=== PATIENT | female | born 1935 | race Caucasian/White ===

== ENCOUNTER 2018-02-07 09:34 | Inpatient (IN) ==
[2018-02-07] MEDS ORDERED: HYDROmorphone 2 MG/1 ML VIAL IV STA (10:01)
[2018-02-07] MEDS ORDERED: ONDANSETRON 4 MG/2 ML VIAL IV STA (10:01)
[2018-02-07] MEDS ORDERED: SODIUM CHLORIDE 0.9% 500 ML IV STA (10:01)
[2018-02-07] MEDS ORDERED: ONDANSETRON 4 MG/2 ML VIAL ONE ×2 (10:04→17:17)
[2018-02-07] MEDS ORDERED: HYDROmorphone 2 MG/1 ML VIAL ONE ×2 (10:04→10:52)
[2018-02-07 10:08] LABS: Basophils # 0.1 10*3/uL (0.0-0.2); Basophils % 0.4 % (0.0-0.8); Eosinophils % 0.1 % (0.00-10.9); Hematocrit 40.1 VOL% (35.7-47.0); Immature Granulocytes % 0.6 %; Immature Granulocytes Absolute 0.09 #; Lymphocytes # 0.9 10*3/uL (1.4-4.0); Lymphocytes % 6.1 % (21.3-54.2); Mean Corpuscular HGB Conc 34.9 GM/DL (32-36); Mean Corpuscular Hemoglobin 36 PG (27-34); Mean Corpuscular Volume 101.8 FL (87-102); Mean Platelet Volume 10.9 FL (9.6-12.0); Monocytes # 0.9 10*3/uL (0.11-0.8); Monocytes % 6.3 % (1.7-12.7); Neutrophils # 12.3 10*3/uL (1.4-7.4); Neutrophils % 86.5 % (38.7-73.9); Platelet Count 203 T/CUMM (130-400); Red Blood Count 3.94 MC/CUMM (3.8-5.5); Red Cell Distribution Width 11.7 % (9.3-17.3); White Blood Count 14.2 T/CUMM (4-12)
[2018-02-07 10:14] LABS: INR 0.9
[2018-02-07 10:26] LABS: Albumin 3.9 G/DL (3.4-5.0); Bilirubin,Total 1.3 MG/DL (0.2-1.0); Calcium 9.2 MG/DL (8.5-10.1); Osmolality,Calculated 262.8 MOS/KG (273-304); Potassium 4.9 MMOL/L (3.5-5.1); Total Protein 8.1 G/DL (6.4-8.3)
[2018-02-07] MEDS ORDERED: HYDROmorphone 2 MG/1 ML VIAL IV ONE (10:51)
[2018-02-07] MEDS ORDERED: MAGNESIUM HYDROXIDE SUSP 30 ML UDCUP PO PRN ×2 (11:58→15:46)
[2018-02-07] MEDS ORDERED: HYDROmorphone 2 MG/1 ML VIAL IV PRN (11:58)
[2018-02-07] MEDS ORDERED: ceFAZolin 1,000 MG in SYRINGE 1 EACH IV ONE (11:58)
[2018-02-07] MEDS: SODIUM CHLORIDE 0.9% 1,000 ML IV SCH ×2 (12:25→21:30)
[2018-02-07] MEDS ORDERED: NITROGLYCERIN SL 0.4 MG TABLET SL PRN (14:01)
[2018-02-07] MEDS ORDERED: ROPIVACAINE 0.5% 30 ML VIAL ONE (14:29)
[2018-02-07] MEDS ORDERED: LACTULOSE 20 GM/30 ML UDCUP PO PRN (15:46)
[2018-02-07] MEDS ORDERED: BISACODYL 10 MG SUPP RECTAL PRN (15:46)
[2018-02-07] MEDS ORDERED: ONDANSETRON 4 MG/2 ML VIAL IV PRN (15:46)
[2018-02-07] MEDS ORDERED: ACETAMINOPHEN 325 MG TABLET PO PRN (15:46)
[2018-02-07] MEDS ORDERED: PROMETHAZINE 25 MG/1 ML VIAL IM PRN (15:46)
[2018-02-07] MEDS: SPIRONOLACTONE 25 MG TABLET PO SCH ×2 (16:01→21:01)
[2018-02-07 16:37] LABS: Apearance,Urine Slightly Hazy (Clear); Bacteria,Urine Occasional /HPF (Few); Bilirubin,Urine Negative (Negative); Blood, Urine Small mg/dL (Negative); Glucose,Urine (UA) Negative (Negative); Ketones,Urine 5 mg/dL (Negative); Mucus,Urine Occasional /LPF (Occasional); Nitrite,Urine Positive (Negative); Protein,Urine Negative; RBC,Urine <1 /HPF (0-4); Urine Color Yellow (Yellow); Urine Specific Gravity 1.013 (1.001-1.035); Urine Urobilinogen < 2.0 EU/DL (0.2-1.0); WBC,Urine 2 /HPF (0-6)
[2018-02-07] MEDS ORDERED: fentaNYL 100 MCG/2 ML VIAL ONE (17:17)
[2018-02-07] MEDS ORDERED: PROPOFOL 200 MG/20 ML VIAL IV ONE (17:17)
[2018-02-07] MEDS ORDERED: SEVOFLURANE 1 UNIT/15 MINUTE INH ONE (17:17)
[2018-02-07] MEDS ORDERED: ACETAMINOPHEN 1,000 MG/100 ML VIAL IV ONE (17:18)
[2018-02-07] MEDS ORDERED: PHENYLEPHRINE 10 MG/1 ML VIAL IV ONE (17:19)
[2018-02-07] MEDS: MAGNESIUM OXIDE 400 MG TABLET PO SCH (21:00)
[2018-02-07] MEDS ORDERED: ROSUVASTATIN 10 MG TABLET PO SCH (21:00)
[2018-02-07] MEDS: CARVEDILOL 3.125 MG TABLET PO SCH (21:02)
[2018-02-08] MEDS: HYDROmorphone 2 MG/1 ML VIAL IV PRN ×4 (00:07→15:53)
[2018-02-08] MEDS: ceFAZolin 1,000 MG in SYRINGE 1 EACH IV SCH ×3 (00:25→17:28)
[2018-02-08 06:04] LABS: Basophils % 0.6 % (0.0-0.8); Eosinophils # 0.1 10*3/uL (0.0-0.87); Eosinophils % 0.7 % (0.00-10.9); Hematocrit 29.7 VOL% (35.7-47.0); Hemoglobin 10.1 GM/DL (12.0-16.0); Immature Granulocytes % 0.3 %; Immature Granulocytes Absolute 0.02 #; Lymphocytes # 1.4 10*3/uL (1.4-4.0); Mean Corpuscular Hemoglobin 35 PG (27-34); Mean Corpuscular Volume 104.2 FL (87-102); Mean Platelet Volume 10.9 FL (9.6-12.0); Monocytes % 13.9 % (1.7-12.7); Neutrophils # 4.7 10*3/uL (1.4-7.4); Neutrophils % 65.5 % (38.7-73.9); Platelet Count 133 T/CUMM (130-400); Red Blood Count 2.85 MC/CUMM (3.8-5.5); Red Cell Distribution Width 12.1 % (9.3-17.3); White Blood Count 7.1 T/CUMM (4-12)
[2018-02-08 06:30] LABS: Calcium 8.1 MG/DL (8.5-10.1); Potassium 4.4 MMOL/L (3.5-5.1)
[2018-02-08 06:32] LABS: Albumin 2.7 G/DL (3.4-5.0); Bilirubin,Direct 0.4 MG/DL (0.0-0.20); Bilirubin,Total 1.4 MG/DL (0.2-1.0); Total Protein 5.5 G/DL (6.4-8.3)
[2018-02-08 06:33] LABS: Risk Ratio 1.85
[2018-02-08] MEDS: THYROID 60 MG TABLET PO SCH (07:59)
[2018-02-08] MEDS: SPIRONOLACTONE 25 MG TABLET PO SCH ×3 (08:00→20:55)
[2018-02-08] MEDS: MAGNESIUM OXIDE 400 MG TABLET PO SCH ×2 (08:00→20:53)
[2018-02-08] MEDS: PANTOPRAZOLE 40 MG TABLET PO SCH (08:00)
[2018-02-08] MEDS: SELENIUM 200 MCG TABLET PO SCH (08:00)
[2018-02-08] MEDS: CHOLECALCIFEROL 400 UNIT TABLET PO SCH (08:00)
[2018-02-08] MEDS: THIAMINE 100 MG TABLET PO SCH (08:01)
[2018-02-08] MEDS: ASPIRIN EC 81 MG TABLET PO SCH (08:01)
[2018-02-08] MEDS: CARVEDILOL 3.125 MG TABLET PO SCH ×2 (08:01→20:55)
[2018-02-08] MEDS: FOLIC ACID 1 MG TABLET PO SCH (08:01)
[2018-02-08] MEDS ORDERED: HYDROmorphone 2 MG/1 ML VIAL IV PRN (09:48)
[2018-02-08] MEDS ORDERED: TEMAZEPAM 15 MG CAPSULE PO PRN (10:39)
[2018-02-08] MEDS ORDERED: TEMAZEPAM 7.5 MG CAPSULE PO PRN (10:39)
[2018-02-08] MEDS: SODIUM CHLORIDE 0.9% 1,000 ML IV SCH (21:47)
[2018-02-09 05:28] LABS: Basophils % 0.5 % (0.0-0.8); Eosinophils # 0.1 10*3/uL (0.0-0.87); Eosinophils % 0.8 % (0.00-10.9); Hematocrit 28.9 VOL% (35.7-47.0); Hemoglobin 10.1 GM/DL (12.0-16.0); Immature Granulocytes % 0.5 %; Immature Granulocytes Absolute 0.03 #; Lymphocytes # 1.3 10*3/uL (1.4-4.0); Lymphocytes % 20.2 % (21.3-54.2); Mean Corpuscular HGB Conc 34.9 GM/DL (32-36); Mean Corpuscular Hemoglobin 36 PG (27-34); Mean Corpuscular Volume 101.8 FL (87-102); Mean Platelet Volume 10.9 FL (9.6-12.0); Monocytes # 0.9 10*3/uL (0.11-0.8); Monocytes % 13.1 % (1.7-12.7); Neutrophils # 4.3 10*3/uL (1.4-7.4); Neutrophils % 64.9 % (38.7-73.9); Platelet Count 120 T/CUMM (130-400); Red Blood Count 2.84 MC/CUMM (3.8-5.5); Red Cell Distribution Width 11.9 % (9.3-17.3); White Blood Count 6.6 T/CUMM (4-12)
[2018-02-09 06:03] LABS: Calcium 7.8 MG/DL (8.5-10.1); Osmolality,Calculated 271.8 MOS/KG (273-304); Potassium 4.1 MMOL/L (3.5-5.1)
[2018-02-09] MEDS: SODIUM CHLORIDE 0.9% 1,000 ML IV SCH (06:29)
[2018-02-09] MEDS: PANTOPRAZOLE 40 MG TABLET PO SCH (08:41)
[2018-02-09] MEDS: CHOLECALCIFEROL 400 UNIT TABLET PO SCH (08:41)
[2018-02-09] MEDS: MAGNESIUM OXIDE 400 MG TABLET PO SCH ×2 (08:41→21:21)
[2018-02-09] MEDS: SPIRONOLACTONE 25 MG TABLET PO SCH ×3 (08:41→21:22)
[2018-02-09] MEDS: THIAMINE 100 MG TABLET PO SCH (08:41)
[2018-02-09] MEDS: SELENIUM 200 MCG TABLET PO SCH (08:41)
[2018-02-09] MEDS: CARVEDILOL 3.125 MG TABLET PO SCH ×2 (08:41→21:22)
[2018-02-09] MEDS: THYROID 60 MG TABLET PO SCH (08:42)
[2018-02-09] MEDS: ASPIRIN EC 81 MG TABLET PO SCH (08:42)
[2018-02-09] MEDS: FOLIC ACID 1 MG TABLET PO SCH (08:42)
[2018-02-09] MEDS: HYDROmorphone 2 MG/1 ML VIAL IV PRN (09:36)
[2018-02-10 05:23] LABS: Basophils % 0.3 % (0.0-0.8); Eosinophils # 0.1 10*3/uL (0.0-0.87); Eosinophils % 1.3 % (0.00-10.9); Hematocrit 27.9 VOL% (35.7-47.0); Hemoglobin 9.9 GM/DL (12.0-16.0); Immature Granulocytes % 0.4 %; Immature Granulocytes Absolute 0.03 #; Lymphocytes # 1.5 10*3/uL (1.4-4.0); Lymphocytes % 22.8 % (21.3-54.2); Mean Corpuscular HGB Conc 35.5 GM/DL (32-36); Mean Corpuscular Hemoglobin 36 PG (27-34); Mean Corpuscular Volume 101.1 FL (87-102); Mean Platelet Volume 11.1 FL (9.6-12.0); Monocytes # 0.9 10*3/uL (0.11-0.8); Neutrophils # 4.2 10*3/uL (1.4-7.4); Neutrophils % 62.2 % (38.7-73.9); Platelet Count 130 T/CUMM (130-400); Red Blood Count 2.76 MC/CUMM (3.8-5.5); Red Cell Distribution Width 11.9 % (9.3-17.3); White Blood Count 6.7 T/CUMM (4-12)
[2018-02-10 05:52] LABS: Calcium 7.7 MG/DL (8.5-10.1); Osmolality,Calculated 272.8 MOS/KG (273-304); Potassium 3.9 MMOL/L (3.5-5.1)
[2018-02-10] MEDS: ASPIRIN EC 81 MG TABLET PO SCH (10:44)
[2018-02-10] MEDS: FOLIC ACID 1 MG TABLET PO SCH (10:44)
[2018-02-10] MEDS: MAGNESIUM OXIDE 400 MG TABLET PO SCH (10:44)
[2018-02-10] MEDS: SELENIUM 200 MCG TABLET PO SCH (10:44)
[2018-02-10] MEDS: PANTOPRAZOLE 40 MG TABLET PO SCH (10:44)
[2018-02-10] MEDS: THIAMINE 100 MG TABLET PO SCH (10:44)
[2018-02-10] MEDS: CHOLECALCIFEROL 400 UNIT TABLET PO SCH (10:44)
[2018-02-10] MEDS: CARVEDILOL 3.125 MG TABLET PO SCH (10:45)
[2018-02-10] MEDS: THYROID 60 MG TABLET PO SCH (10:45)
[2018-02-10] MEDS: SPIRONOLACTONE 25 MG TABLET PO SCH (10:45)
[2018-02-10 11:22] VITALS: BP 155/69
== END 2018-02-10 12:45 | disposition swing bed (61) | DRG 493 ==
LOC: EDBD → EDUNIT# → N.ED 09:34 → N.EDINP 11:03 → N.3E 11:40
PROVIDERS: ADMIT Orthopaedic Surgery; ATTEND Orthopaedic Surgery